=== PATIENT | male | born 1960 | race Caucasian/White ===

== ENCOUNTER 2023-12-17 17:07 | Emergency (ER) | payer BC, SELFPAY ==
[2023-12-17 17:07] VITALS: BMI 32.9
[2023-12-17 17:26] VITALS: BP 169/97
[2023-12-17 17:51] LABS: % Basophils 0.9 % (0-2); % Immature Granulocytes 0.2 % (0-0.5); % Lymphocytes 20.2 % (20.5-51.1); % Monocytes 6.8 % (1.7-9.3); % Neutrophils 68.9 % (42.2-75.2); Absolute Basophils 0.1 10^3/uL (0-0.2); Absolute Eosinophils 0.2 10^3/uL (0-0.7); Absolute Lymphocytes 1.3 10^3/uL (1.2-3.4); Absolute Monocytes 0.5 10^3/uL (0.1-0.6); Absolute Neutrophils 4.6 10^3/uL (1.4-6.5); Hematocrit 44.2 % (39.0-52.0); Hemoglobin 15.7 g/dL (13.0-18.0); Mean Corp Hgb Conc. 35.5 g/dL (33.0-37.0); Mean Corpuscular Hgb 30.5 pg (27.0-31.0); Mean Corpuscular Volume 85.8 fL (80.0-94.0); Mean Platelet Volume 9.5 fL (7.4-10.4); Nucleated Red Blood Cells % 0 % (-); Platelet Count 257 10^3/uL (130-400); Red Blood Cell Count 5.15 10^6/uL (4.70-6.10); Red Cell Dist. Width 12.7 % (11.5-14.5); White Blood Cell Count 6.7 10^3/uL (4.8-10.8)
[2023-12-17 17:52] LABS: Urine Albumin Negative (Neg - Trace); Urine Bilirubin Negative (Negative); Urine Character Clear (Clear); Urine Color Yellow; Urine Glucose Negative (Negative); Urine Ketone Negative (Negative); Urine Leukocyte Negative (Negative); Urine Nitrite Negative (Negative); Urine Occult Blood Negative (Negative); Urine Specific Gravity 1.025 (<1.030); Urine Urobilinogen Negative (Neg - 1+)
[2023-12-17 18:05] LABS: ALT (SGPT) 29 U/L (0-50); AST (SGOT) 28 U/L (17-59); Albumin 4.6 g/dl (3.5-5.0); Alkaline Phosphatase 114 U/L (38-126); Blood Urea Nitrogen 28 mg/dl (9-20); Calcium 9.8 mg/dl (8.4-10.2); Carbon Dioxide 27 mmol/L (22-30); Chloride 103 mmol/L (98-107); Glucose 107 mg/dl (70-99); Lipase 97 U/L (23-300); Potassium 4.3 mmol/L (3.5-5.1); Sodium 138 mmol/L (135-145); Total Bilirubin 0.5 mg/dl (0.2-1.3); Total Protein 7.6 g/dl (6.3-8.2); eGFR > 60.00
[2023-12-17 18:51] VITALS: BP 134/91
[2023-12-17 19:00] VITALS: BP 131/92
--- NOTE | 2023-12-17 19:25 | ED.GENMED ---
History of Present Illness
General
Chief Complaint: Abdominal Pain
Source: patient
Exam Limitations: none
Time Seen by Provider: 12/17/23 19:12
Travel History
Have you had any contact with someone who has COVID-19?: No
Do you have any symptoms of coronavirus? Fever > 100 degrees, chills, cough, shortness of breath, sore throat, loss of taste or smell, muscle aches, or headache?: No
History of Present Illness
History of Present Illness:
See MDM
Past History
Past History
ED Past Medical History: GERD, HTN and Hypercholesterolemia
ED Past Surgical History: Orthopedic
Social History
Tobacco: Former smoker
Alcohol: None
Drug: None
Personal: Single
Living: alone
Phy Exam
Physical Exam
Physical Exam:
See MDM
Course
Orders/Labs/Results
Orders:
Orders
12/17/23 17:43
Complete Blood Count/With Diff Urgent
Comprehensive Metabolic Panel Urgent
Lipase Urgent
Urinalysis Reflex To Culture Urgent
Date Specimen was Collected: 12/17/23
Time Specimen was Collected: 17:32
12/17/23 19:25
CT Abd/pel Without Iv Or Oral Urgent
Comment:
Reason For Exam: left flank and left groin pain
Abnormal Lab Results
12/17/23
17:43
Lymphocytes % 20.2 L %
(20.5-51.1)
BUN 28 H mg/dl
(9-20)
Glucose 107 H mg/dl
(70-99)
12/17/23 17:43
12/17/23 17:43
Vital Signs
Initial and Last Documented VS:
Initial Vital Signs
Temp Pulse Resp BP Pulse Ox
98.7 F 66 18 169/97 95
12/17/23 17:26 12/17/23 17:26 12/17/23 17:26 12/17/23 17:26 12/17/23 17:26
Last Documented Vital Signs
Temp Pulse Resp BP Pulse Ox
98.2 F 66 18 169/97 96
12/17/23 18:48 12/17/23 17:26 12/17/23 17:26 12/17/23 17:26 12/17/23 18:47
MDM/Problems Addressed
Differential Diagnosis Includes:
HPI and MDM Narrative:
63-year-old male presenting with left lower quadrant pain. This been ongoing for 'a while'. He is unsure if this is a muscle strain or hernia. He then goes on to explain that he has been having headaches for months with intermittent blurry
vision. He was at an outside hospital and states he received a CT head. He was admitted to undergo brain MRI but was getting frustrated with waiting so he left. Patient is asking for brain MRI from the emergency department. Did explain that
there is no active stroke symptoms on exam to necessitate an emergent MRI. We discussed having this done as an outpatient since this is an ongoing issue for several months. Patient acknowledges and understands. He states he was given follow-up
information for neurologist. He also states that he believes his headache could be a tension headache. He also states that he has follow-up with an value analyst to evaluate for diabetic retinopathy.
Patient is extremely well-appearing and nontoxic on exam. There is very mild left lower quadrant pain. Will obtain CT to rule out hernia versus kidney stone versus diverticulitis.
Physical exam
General: Well appearing and non-toxic
HEENT: protecting airway. Pupils equal reactive. No visual field cut. No tenderness to palpation of bilateral temples
Neck: supple
CV: No evidence of cyanosis
Resp: No accessory muscle use
Abd: Non-distended. Mild tenderness to LLQ without rebound
Extremities: No deformities
Neuro: alert
Psych: Normal affect
Skin: Intact
Problems Addressed including Acute and Chronic Conditions affecting care:
1. Headache
Acuity: acute
Prognosis: stable
Details: Likely tension. Discussed outpatient MRI
2. Abdominal pain
Acuity: acute
Prognosis: stable
Details: Likely muscle strain. Given persistent symptoms, will obtain CT
Updates
CT shows diverticulosis without diverticulitis. This is a new diagnosis for him. Discussed follow-up with his PCP. We also discussed inguinal hernia containing fat only. Discussed high-fiber diet and follow-up with his surgeon. Patient given
printout of blood work and CT report and will make CD of this CT scan to bring to his surgeon
Discussed continuing the plan to follow-up with a neurologist
Differential Diagnosis (but not limited to): Migraine, tension headache, diverticulitis, constipation, muscle strain
Testing considered: Repeat CT head but he has no focal deficits
Drug therapy (if applicable): OTC meds, please see d/c instruction regarding Rx drugs
Amount and/or Complexity of Data Reviewed
Clinical info obtained from: Patient
External data reviewed: N/A
Labs I independently reviewed (but not limited to): White blood count normal
Radiology: The CT scan was personally and independently reviewed. In addition, official CT report reviewed.
Pulse Ox: not hypoxic
EKG independently reviewed: N/A
Livestock Producer: N/A
Critical Care: N/A
Risk of Complication:
Social Determinants of health: Good social support
Discussed with other providers: N/A
Escalation of Care includes Admit/Obs: After being observed in the Emergency Department, pt stable for discharge.
Occasional wrong word or 'sound a like' substitutions may have occurred due to the inherent limitations of voice recognition software. Read the chart carefully and recognize, using context, where substitutions have occurred.
*Critical Care Note
Total Time (30-74mins, 75-104mins- exclusive of procedures): Not Applicable
ED Attending Note
-
Portions of this chart may have been created with voice recognition software.� Occasional wrong word or��sound alike� substitutions may have occurred due to the inherent limitations of voice recognition software.
Discharge Plan
Departure
Patient Disposition: Home (Routine Discharge)
Date of Disposition: 12/17/23
Time of Disposition: 22:16
Patient with high blood pressure during this ER visit?: Yes
Discharge Problem:
Headache, Inguinal hernia, Diverticulosis of colon
Instructions: BLOOD PRESSURE
Referrals:
Tavon Worthington MD [Family Provider] -
Activity Restrictions/Additional Instructions:
Please return for any worsening symptoms.
You may return at any time if you have further concerns.
Please follow up with your doctor at the first available appointment, preferably this week.
Thank you for choosing [facility].
Interventions
Interventions:
*Risk Screen - Suicide Last Done: 12/17/23 17:30
*General Assessment Last Done: 12/17/23 17:30
*Neglect/Abuse Screening Last Done: 12/17/23 17:30
*ED COVID-19 Vaccine History Last Done: 12/17/23 18:41
UE-Atafqy-Lfigqzcjpt Assessment Last Done: 12/17/23 18:41
Discharge Date and Time
Print Language: GREEK
[2023-12-17 22:30] VITALS: BP 134/90
== END 2023-12-17 22:33 | disposition home or self-care (01) ==
LOC: EMR 17:07
PROVIDERS: Emergency Medicine; EMERGENCY PHYSICIAN Student in an Organized Health Care Education/Training Program; FAMILY PHYSICIAN Family Medicine
DX: K57.30 Diverticulosis of large intestine without perforation or abscess without bleeding (principal); K40.90 Unilateral inguinal hernia, without obstruction or gangrene, not specified as recurrent; R51.9 Headache, unspecified; I10 Essential (primary) hypertension; E11.319 Type 2 diabetes mellitus with unspecified diabetic retinopathy without macular edema; K21.9 Gastro-esophageal reflux disease without esophagitis; E78.00 Pure hypercholesterolemia, unspecified; Z87.891 Personal history of nicotine dependence
CPT/HCPCS: 99284; 74176; 80053; 81003; 83690; 85025

== ENCOUNTER 2024-06-08 16:05 | Emergency (ER) | payer BC, SELFPAY ==
[2024-06-08 16:12] VITALS: BP 164/103
--- NOTE | 2024-06-08 17:23 | ED.SKININJ ---
HPI-Injury
General
Chief Complaint: Skin Problem
Source: patient
Exam Limitations: none
Time Seen by Provider: 06/08/24 16:55
Nursing documentation reviewed up to this point in time: agreed with
History of Present Illness-Injury
Is this injury a work related problem?: No
Is pt an associate of [facility]?: No
Initial Injury comments:
Patient to ED with complaint of erythema and swelling to RUE. States he received pneumonia vaccine on 06/02. 3 days later he noted rednessbelow site and this continues to expand. Denies fever/chills. Advised by PCP to come to ED fo eval.
Past History
Past History
ED Past Medical History: GERD, HTN and Hypercholesterolemia
ED Past Surgical History: Orthopedic
Social History
Tobacco: Former smoker
Alcohol: None
Drug: None
Personal: Single
Living: alone
Review of Systems
Review of Systems
Allergies reviewed?: Yes
All Other Systems: ROS reviewed and negative except as documented in HPI and ROS
Constitutional: Reports no symptoms
Musculoskeletal: Reports no symptoms
Skin: Reports other (erythema and swelling to right upper arm)
Neurological: Reports no symptoms
Psychiatric: Reports no symptoms
Phy Exam
General Physical Exam
General Presentation: well appearing and no apparent distress
General Skin: warm and dry
General Habitus: normal
General Mental: alert
Musculoskeletal Exam
Musculoskeletal Exam: full ROM and neuro vasc intact
Skin Exam
Skin Exam: other (erythema and swelling to right upper arm. )
Psychiatric Exam
Psychiatric Exam: normal mood/affect
Course
Orders/Labs/Results
Orders:
Orders
06/08/24 17:16
Doxycycline [Vibramycin] 100 mg PO NOW STA
Vital Signs
Initial and Last Documented VS:
Initial Vital Signs
Temp Pulse Resp BP Pulse Ox
98.4 F 85 16 164/103 99
06/08/24 16:12 06/08/24 16:12 06/08/24 16:12 06/08/24 16:12 06/08/24 16:12
Last Documented Vital Signs
Temp Pulse Resp BP Pulse Ox
98.4 F 75 18 148/101 97
06/08/24 16:12 06/08/24 17:42 06/08/24 17:42 06/08/24 17:42 06/08/24 17:42
MDM/Problems Addressed
Differential Diagnosis Includes:
erythema and swelling to right uypper arm 3 days after receiving pneumonia vaccine. Erythema and swelling located below site of vaccine and continues to worsen. No fever. Full ROM to extremity, neurovascularly intact. Labs reviewed. No evidence
of systemic infection. WIll place on doxycyine bid. First dose given in ED. He was given instructions on s/s to return to ED and he is agreeable to plan.
*Critical Care Note
Total Time (30-74mins, 75-104mins- exclusive of procedures): Not Applicable
ED Attending Note
-
Portions of this chart may have been created with voice recognition software.� Occasional wrong word or��sound alike� substitutions may have occurred due to the inherent limitations of voice recognition software.
Discharge Plan
Departure
Patient Disposition: Home (Routine Discharge)
Date of Disposition: 06/08/24
Time of Disposition: 17:20
Patient with high blood pressure during this ER visit?: No
Condition: Good
Covid-19: Not Applicable
Discharge Problem:
Cellulitis
Instructions: Cellulitis (Skin Infection), Adult (DC)
Prescriptions:
New
doxycycline hyclate 100 mg tablet
100 mg PO BID Qty: 14 0RF
Stand Alone Forms: Return to Work
Activity Restrictions/Additional Instructions:
Appply warm compresses to site 15-20 minutes at a time, 4-5 times daily. Return to the emergency department immediatly for fever/chills, increasing pain/redness/swelling to arm, or for any further concerns.
Interventions
Interventions:
*Risk Screen - Suicide Last Done: 06/08/24 16:12
*General Assessment Last Done: 06/08/24 16:21
*Neglect/Abuse Screening Last Done: 06/08/24 16:12
*ED COVID-19 Vaccine History Last Done: 06/08/24 16:21
*Nursing Disposition Last Done: 06/08/24 17:42
ED-Skin Assessment Last Done: 06/08/24 16:21
Discharge Date and Time
Discharge Date/Time: 06/08/24 17:42
Print Language: [id number]
[2024-06-08] MEDS: VIBRAMYCIN 100 MG PO (17:28)
[2024-06-08 17:42] VITALS: BP 148/101
== END 2024-06-08 17:42 | disposition home or self-care (01) ==
LOC: EMR 16:05
PROVIDERS: EMERGENCY PHYSICIAN Emergency Medicine; FAMILY PHYSICIAN Family Medicine
DX: L03.113 Cellulitis of right upper limb (principal); E78.00 Pure hypercholesterolemia, unspecified; I10 Essential (primary) hypertension; K21.9 Gastro-esophageal reflux disease without esophagitis; Z87.891 Personal history of nicotine dependence
CPT/HCPCS: 99283